=== PATIENT | male | born 1950 | race African-American/Black ===

== ENCOUNTER 2016-07-15 10:11 | Outpatient (CLI) | payer MEDICARE, MEDICAID ==
[2016-07-15 10:40] LABS: #Basophils 0.1 thou/uL (0.0-0.2); #Lymphocytes 2.1 thou/uL (1.20-3.40); #Monocytes 0.6 thou/uL (0.11-0.59); #Neutrophils 2.9 thou/uL (1.40-6.50); %Basophils 1.1 % (0.0-1.0); %Eosinophils 0.8 % (0.0-10.0); %Lymphocytes 36.8 % (21.0-51.0); %Neutrophils 51.3 % (42.0-75.0); Hemoglobin 13.7 g/dL (14.0-18.0); Mean Corpuscular HGB CONC 33.9 g/dL (32.0-36.0); Mean Corpuscular Hemoglobin 32.6 pg (27.0-31.0); Mean Corpuscular Volume 96.4 fl (80.0-94.0); Mean Platelet Volume 8.1 fL (7.4-10.4); Platelet Count 269 thou/uL (130-400); RBC Distribution Width 11.7 % (11.5-14.5); Red Blood Cell (RBC) Count 4.18 mill/uL (4.70-6.10); White Blood Cell (WBC) Count 5.6 thou/uL (4.8-10.8)
[2016-07-15 10:44] LABS: Hemoglobin A1c 7.7 % (4.0-6.0)
[2016-07-15 10:50] LABS: ALT (SGPT) 33 U/L (0-55); AST (SGOT) 31 U/L (5-34); Albumin 3.8 g/dL (3.4-4.8); Alkaline Phosphatase 83 U/L (40-150); Anion Gap 18 mmol/L (10-20); BUN (Urea Nitrogen) 11 mg/dL (8.4-25.7); Bilirubin, Total 0.5 mg/dL (0.2-1.2); Calc. Creatinine Clearance 0 mL/min (70-130); Calcium 9.1 mg/dL (7.8-10.44); Carbon Dioxide 24 mmol/L (23-31); Chloride 100 mmol/L (98-107); Estimated GFR-MDRD Greater than 90; Globulin 4.3 g/dL (2.4-3.5); Glucose 190 mg/dL (80-115); Potassium 3.6 mmol/L (3.5-5.1); Protein, Total 8.1 g/dL (5.8-8.1); Sodium 138 mmol/L (136-145)
[2016-07-15 11:07] LABS: Thyroid Stimulating Hormone 1.9003 uIU/mL (0.35-4.94)
[2016-07-15 17:31] LABS: Iron 47 ug/dL (65-175)
[2016-07-15 17:53] LABS: Ferritin 568.93 ng/mL (22-322)
[2016-07-15 18:03] LABS: Creatinine, Urine 392.59 mg/dL (63-166)
[2016-07-15 18:06] LABS: Microalbumin Urine 90.9 mg/dL (0.5-50.0); Microalbumin/Creat Ratio 231.5 mg/g (Less than 30)
== END 2016-07-15 10:12 | disposition home or self-care (01) ==
LOC: MADLABBHPM 10:11
PROVIDERS: ATTEND Family Medicine
DX: D50.9 Iron deficiency anemia, unspecified (principal); E11.9 Type 2 diabetes mellitus without complications
CPT/HCPCS: 36415; 80053; 82043; 82728; 83036; 83540; 84443; 85025

== ENCOUNTER 2016-10-12 06:50 | Outpatient (CLI) | payer MEDICAID, MEDICARE ==
[2016-10-12 07:25] LABS: Hemoglobin A1c 7.8 % (4.0-6.0)
[2016-10-12 07:52] LABS: ALT (SGPT) 25 U/L (8-55); AST (SGOT) 23 U/L (5-34); Albumin 3.7 g/dL (3.4-4.8); Alkaline Phosphatase 87 U/L (40-150); Anion Gap 14 mmol/L (10-20); BUN (Urea Nitrogen) 12 mg/dL (8.4-25.7); Bilirubin, Total 0.4 mg/dL (0.2-1.2); Calc. Creatinine Clearance 0 mL/min (70-130); Carbon Dioxide 24 mmol/L (23-31); Chloride 102 mmol/L (98-107); Estimated GFR-MDRD Greater than 90; Globulin 4.3 g/dL (2.4-3.5); Glucose 142 mg/dL (80-115); Potassium 3.8 mmol/L (3.5-5.1); Sodium 136 mmol/L (136-145)
== END 2016-10-12 06:51 ==
LOC: MADLABBHPM 06:50
PROVIDERS: ATTEND Family Medicine
DX: E11.9 Type 2 diabetes mellitus without complications (principal)
CPT/HCPCS: 36415; 80053; 83036

== ENCOUNTER 2017-01-12 08:29 | Outpatient (CLI) | payer MEDICARE ==
[2017-01-12 09:22] LABS: Hemoglobin A1c 9.1 % (4.0-6.0)
[2017-01-12 09:24] LABS: ALT (SGPT) 27 U/L (8-55); AST (SGOT) 25 U/L (5-34); Albumin 3.9 g/dL (3.4-4.8); Alkaline Phosphatase 87 U/L (40-150); Anion Gap 13 mmol/L (10-20); BUN (Urea Nitrogen) 8 mg/dL (8.4-25.7); Bilirubin, Total 0.5 mg/dL (0.2-1.2); Calc. Creatinine Clearance 0 mL/min (70-130); Calcium 9.3 mg/dL (7.8-10.44); Carbon Dioxide 26 mmol/L (23-31); Cardiac Risk 3.1 (Less than 4.5); Chloride 103 mmol/L (98-107); Cholesterol 175 mg/dl (< 200 Desired); Estimated GFR-MDRD Greater than 90; Globulin 4.4 g/dL (2.4-3.5); Glucose 176 mg/dL (80-115); HDL Cholesterol 57 mg/dL (>60 Neg Risk); LDL Cholesterol, Calculated 98 mg/dL; Potassium 3.4 mmol/L (3.5-5.1); Protein, Total 8.3 g/dL (5.8-8.1); Sodium 139 mmol/L (136-145); Triglycerides 98 mg/dL (Less than 150)
[2017-01-12 11:04] LABS: #Basophils 0.1 thou/uL (0.0-0.2); #Lymphocytes 2.3 thou/uL (1.20-3.40); #Monocytes 0.5 thou/uL (0.11-0.59); #Neutrophils 2.6 thou/uL (1.40-6.50); %Basophils 1.2 % (0.0-1.0); %Eosinophils 0.6 % (0.0-10.0); %Lymphocytes 41.7 % (21.0-51.0); %Monocytes 9.6 % (0.0-10.0); %Neutrophils 46.9 % (42.0-75.0); Hemoglobin 13.5 g/dL (14.0-18.0); Mean Corpuscular HGB CONC 34.1 g/dL (32.0-36.0); Mean Corpuscular Hemoglobin 32.7 pg (27.0-31.0); Mean Corpuscular Volume 96.1 fl (80.0-94.0); Mean Platelet Volume 8.5 fL (7.4-10.4); Platelet Count 209 thou/uL (130-400); RBC Distribution Width 12.5 % (11.5-14.5); Red Blood Cell (RBC) Count 4.13 mill/uL (4.70-6.10); White Blood Cell (WBC) Count 5.4 thou/uL (4.8-10.8)
[2017-01-12 17:01] LABS: Iron 61 ug/dL (65-175)
[2017-01-12 17:36] LABS: Creatinine, Urine 291.17 mg/dL (63-166); Folate (Folic Acid) 16.8 ng/mL (7.0-31.4)
[2017-01-12 17:39] LABS: Microalbumin/Creat Ratio 477.4 mg/g (Less than 30)
== END 2017-01-12 08:30 | disposition home or self-care (01) ==
LOC: MADLABBHPM 08:29
PROVIDERS: ATTEND Family Medicine
DX: E78.2 Mixed hyperlipidemia (principal); E11.9 Type 2 diabetes mellitus without complications; D50.9 Iron deficiency anemia, unspecified; D75.89 Other specified diseases of blood and blood-forming organs
CPT/HCPCS: 36415; 80053; 80061; 82043; 82607; 82728; 82746; 83036; 83540; 85025

== ENCOUNTER 2017-09-20 10:22 | Emergency (ER) | payer MEDICARE, MEDICAID ==
[2017-09-20] MEDS ORDERED: Triple Antibiotic Oint 1 GM Packet ONE ×2 (10:39→11:07)
[2017-09-20] MEDS ORDERED: Adacel (T-DAP) 0.5 ML VIAL ONE (11:11)
[2017-09-20] MEDS ORDERED: Sodium Chloride Irrig Solution 250 ML BOT ONE (12:15)
== END 2017-09-20 12:40 | disposition home or self-care (01) ==
LOC: MADERS 10:22
DX: T21.22XA Burn of second degree of abdominal wall, initial encounter (principal); I10 Essential (primary) hypertension; E11.9 Type 2 diabetes mellitus without complications; Z79.4 Long term (current) use of insulin; E78.5 Hyperlipidemia, unspecified; F17.210 Nicotine dependence, cigarettes, uncomplicated; X15.8XXA Contact with other hot household appliances, initial encounter
CPT/HCPCS: 16020; 90471; 90715

== ENCOUNTER 2023-01-09 09:45 | Emergency (ER) | payer MEDICARE ==
[2023-01-09] MEDS ORDERED: Ondansetron PF 4 MG/2 ML Vial ONE ×2 (10:59→17:46)
[2023-01-09] MEDS ORDERED: Sodium Chloride 0.9% 500 ML ONE ×2 (10:59→13:02)
[2023-01-09] MEDS ORDERED: Pantoprazole 40 MG VIAL ONE (11:36)
[2023-01-09] MEDS ORDERED: Sodium Chloride 0.9% 100 ML ONE (11:36)
[2023-01-09 11:40] LABS: Hematocrit 42.4 % (42.0-52.0); Hemoglobin 13.8 g/dL (14.0-18.0); Mean Corpuscular HGB CONC 32.5 g/dL (32.0-36.0); Mean Corpuscular Hemoglobin 31.2 pg (27.0-31.0); Mean Corpuscular Volume 95.9 fl (78.0-98.0); Mean Platelet Volume 10.5 fL (7.4-10.4); Platelet Count 239 10x3/uL (130-400); RBC Distribution Width 13.8 % (11.5-14.5); Red Blood Cell (RBC) Count 4.42 mill/uL (4.70-6.10); White Blood Cell (WBC) Count 6.9 10x3/uL (4.8-10.8)
[2023-01-09 11:41] LABS: Band 2 % (5-11); Hypochromia SLIGHT = 6-15 cells (100X) (0-5/hpf); Lymphocytes 31 % (21-51); MDiff Complete? YES; Monocytes 5 % (0-10); Neutrophil 62 % (42-75); Platelet Adequacy Comment Appears Adequate
[2023-01-09 11:44] LABS: ALT (SGPT) 12 U/L (8-55); AST (SGOT) 21 U/L (5-34); Albumin 4.5 g/dL (3.4-4.8); Alkaline Phosphatase 102 U/L (40-110); Anion Gap 27 mmol/L (10-20); BUN (Urea Nitrogen) 56 mg/dL (8.4-25.7); Bilirubin, Total 0.8 mg/dL (0.2-1.2); Calc. Creatinine Clearance 0 mL/min (70-130); Calcium 10.4 mg/dL (7.8-10.44); Carbon Dioxide 33 mmol/L (23-31); Chloride 83 mmol/L (98-107); Estimated GFR 21; Globulin 5.2 g/dL (2.4-3.5); Glucose 226 mg/dL (83-110); Magnesium 1.6 mg/dL (1.6-2.6); Potassium 3.8 mmol/L (3.5-5.1); Protein, Total 9.7 g/dL (5.8-8.1); Sodium 139 mmol/L (136-145)
[2023-01-09] MEDS ORDERED: Iopamidol 370 76% 100 ML VIAL ONE (13:45)
[2023-01-09 15:00] LABS: Hematocrit 42.8 % (42.0-52.0); Hemoglobin 13.7 g/dL (14.0-18.0)
[2023-01-09] MEDS ORDERED: Sodium Chloride 0.9% 1,000 ML ONE (15:24)
[2023-01-09 18:33] LABS: Bilirubin Small (Negative); Blood, Urine Negative (Negative); Glucose, Urine (Dipstick) Negative (Negative); Ketone, Urine Trace mg/dL (Negative); Leukocyte Negative (Negative); Nitrite Negative (Negative); Protein, Urine (Dipstick) 100 mg/dL (Neg-Trace); Specific Gravity, Urine 1.015 (1.005-1.030); Urobilinogen 0.2 mg/dL (Less than 2); pH, Urine 5.5 (5.0-9.0)
[2023-01-09 18:35] LABS: Bacteria/HPF 2+ HPF (None Seen); CAUTI Indications for Culture Pelvic or flank pain; Clarity Hazy (Clear); RBC/HPF 0-3 HPF (0-3); Squamous Epithelial 0-3 HPF (0-3)
[2023-01-09 18:36] LABS: Urine Culture Reflex No No
== END 2023-01-09 18:08 | disposition short-term general hospital (02) ==
LOC: MADERS 09:45
DX: K86.89 Other specified diseases of pancreas (principal); N17.9 Acute kidney failure, unspecified; K56.609 Unspecified intestinal obstruction, unspecified as to partial versus complete obstruction; K92.2 Gastrointestinal hemorrhage, unspecified; E11.9 Type 2 diabetes mellitus without complications; Z79.4 Long term (current) use of insulin; E78.00 Pure hypercholesterolemia, unspecified; I10 Essential (primary) hypertension; Z87.891 Personal history of nicotine dependence; Z79.84 Long term (current) use of oral hypoglycemic drugs; Z79.82 Long term (current) use of aspirin; Z79.899 Other long term (current) drug therapy
CPT/HCPCS: 36415; 71045; 74177; 80053; 81001; 82271; 83735; 83880; 85025; 93005; 96361; 96365; 96366; 96375; C9113; J2405; J7030; J7050; Q9967